=== PATIENT | female | born 1990 | race Caucasian/White ===

== ENCOUNTER 2017-11-24 09:02 | Emergency (ER) | payer OTHER ==
[2017-11-24] MEDS ORDERED: Acetaminophen/HYDROcodone 325-5 MG Tab PO ONE (09:57)
--- NOTE | 2017-11-24 10:13 | EDM.PDOC ---
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 She had her left hand in the way and one panel fell on her left hand. She has a contusion and abrasion to the left hand. She has no other injuries. She is right handed and her tetanus is up to date. Onset: Sudden Duration: Minutes: Location: Reports: Upper Extremity, Left (hand) Quality: Reports: Sharp Severity: Moderate Improves with: Reports: Immobilization Worsens with: Reports: Movement Associated Symptoms: Reports: No Other Symptoms Left Hand Pain Score (Numeric/FACES): 6 - Related Data Allergies Allergy/AdvReac Type Severity Reaction Status Date / Time naproxen Allergy Rash Verified 11/24/17 09:10 Home Meds: Home Meds Escitalopram [Lexapro] 20 mg PO DAILY 11/24/17 [History] busPIRone [Buspar] 15 mg PO ONETIME 11/24/17 [History] Past Medical History - Past Health History Medical/Surgical History: Denies Medical/Surgical History Social & Family History - Tobacco Use Smoking Status *Q: Never Smoker Review of Systems - Review of Systems Review Of Systems: See Below Constitutional: Reports: No Symptoms Eyes: Reports: No Symptoms Ears: Reports: No Symptoms Nose: Reports: No Symptoms Mouth/Throat: Reports: No Symptoms Respiratory: Reports: No Symptoms Cardiovascular: Reports: No Symptoms GI/Abdominal: Reports: No Symptoms Genitourinary: Reports: No Symptoms Musculoskeletal: Reports: Other (Pain, edema and abrasion to left hand) ED EXAM, GENERAL - Physical Exam Exam: See Below Exam Limited By: No Limitations General Appearance: Alert, No Apparent Distress Ears: Normal External Exam Nose: Normal Inspection Head: Atraumatic, Normocephalic Neck: Normal Inspection Respiratory/Chest: No Respiratory Distress Extremities: Other (Moderate edema to the left hand on the dorsal aspect over the 5th and 4th MCP. Good capillary refil and sensation distally. Abrasion to that area also) Course - Vital Signs Last Recorded V/S: Last Vital Signs Temp 98.5 F 11/24/17 09:08 Pulse 60 11/24/17 09:08 Resp 18 11/24/17 09:08 BP 129/90 11/24/17 09:08 Pulse Ox 100 11/24/17 09:08 - Orders/Labs/Meds Orders: Active Orders 24 hr Category Date Time Status Hand Comp Min 3V Lt [CR] Stat Exams 11/24/17 09:17 Taken Meds: Medications Discontinued Medications Generic Name Dose Route Start Last Admin Trade Name Kev PRN Reason Stop Dose Admin Hydrocodone Bitart/Acetaminophen 2 tab 11/24/17 09:57 [place] 325-5 Mg PO 11/24/17 09:58 ONETIME ONE - Re-Assessments/Exams Free Text/Narrative Re-Assessment/Exam: 11/24/17 10:12 I ordered 2 hydrocodone. The x-ray of her hand was negative for fracture. I will have her wear an dionne wrap and I will give her something for pain. Departure - Departure Time of Disposition: 10:15 Disposition: Home, Self-Care 01 Condition: Good Clinical Impression: Crush injury of hand Qualifiers: Encounter type: initial encounter Laterality: left Qualified Code(s): S67.22XA - Crushing injury of left hand, initial encounter Abrasion of left hand Qualifiers: Encounter type: initial encounter Qualified Code(s): S60.512A - Abrasion of left hand, initial encounter Contusion of left hand Qualifiers: Encounter type: initial encounter Qualified Code(s): S60.222A - Contusion of left hand, initial encounter - Discharge Information Referrals: Anna Alaniz PA-C [Primary Care Provider] - 1 Week Forms: ED Department Discharge, ED Return to Work/School Form Additional Instructions: Wash the abrasion with warm soapy water 2 times per day and apply antibiotic ointment after. Ice your hand for 15 minutes every other hour or at a minimum of 3 times per day for 2 days. Try to elevate your hand above your heart as much as you can for 2 days to reduce the swelling. Wear the dionne wrap for comfort. Please return if you are worse. Follow up with your doctor in 1 week if you still have pain. - My Orders Last 24 Hours: My Active Orders 11/24/17 09:17 Hand Comp Min 3V Lt [CR] Stat - Assessment/Plan Last 24 Hours: My Active Orders 11/24/17 09:17 Hand Comp Min 3V Lt [CR] Stat
--- NOTE | 2017-11-24 10:15 | CR ---
Left hand: Four views of the left hand were obtained. Diffuse soft tissue swelling is identified posteriorly. Joint spaces are preserved. No fracture, dislocation or other bony abnormality is identified. Impression: 1. Soft tissue swelling. 2. No acute bony abnormality is identified on left hand study. Diagnostic code #2
== END 2017-11-24 10:35 | disposition home or self-care (01) ==
LOC: JD.ED 09:02
DX: S67.22XA Crushing injury of left hand, initial encounter (principal); Y99.0 Civilian activity done for income or pay; Z88.8 Allergy status to other drugs, medicaments and biological substances; Z79.899 Other long term (current) drug therapy; W23.0XXA Caught, crushed, jammed, or pinched between moving objects, initial encounter
CPT/HCPCS: 73130; 99283; A9270